=== PATIENT | male | born 1985 | race African-American/Black ===

== ENCOUNTER 2019-07-13 07:04 | Day surgery (SDC) | payer OTHER ==
[2019-07-11 08:58] LABS: BASOPHILS # (AUTO) 0.02 x10^3/uL (0-0.1); BASOPHILS % (AUTO) 0 % (0-1); EOSINOPHILS # (AUTO) 0.06 x10^3/uL (0-0.4); EOSINOPHILS % (AUTO) 1 % (1-7); LYMPHOCYTES # (AUTO) 3.06 x10^3/uL (1-3.4); LYMPHOCYTES % (AUTO) 46 % (22-44); MD NO; MEAN CORPUSCULAR HEMOGLOBIN 26.8 pg (27.5-34.5); MEAN CORPUSCULAR HGB CONC 33.2 g/dL (33.2-36.2); MEAN CORPUSCULAR VOLUME 80.8 fL (81-97); MEAN PLATELET VOLUME 9.1 fL (7.4-10.4); MONOCYTES # (AUTO) 0.58 x10^3/uL (0.2-0.8); MONOCYTES % (AUTO) 9 % (2-9); NEUTROPHILS # (AUTO) 2.89 x10^3/uL (1.8-6.8); NEUTROPHILS % (AUTO) 44 % (42-75); PLATELET COUNT 250 x10^3/uL (130-400); RED BLOOD COUNT 5.43 x10^6/uL (4.38-5.82); RED CELL DISTRIBUTION WIDTH 15.6 % (9.4-14.8)
[2019-07-11 09:12] LABS: ALANINE AMINOTRANSFERASE 41 U/L (12-78); ALBUMIN 4.1 g/dL (3.4-5.0); ANION GAP 4 mmol/L (5-15); CALCIUM 8.8 mg/dL (8.5-10.1); CHLORIDE 107 mmol/L (98-107)
[2019-07-11 09:13] LABS: ALKALINE PHOSPHATASE 64 U/L (45-117); INTERNATIONAL NORMALIZED RATIO 0.97 (0.93-1.1); PROTHROMBIN TIME 10.3 Seconds (9.6-11.5); TOTAL PROTEIN 7.8 g/dL (6.4-8.2)
[~2019-07-13] VITALS: Ht 188 cm; Wt 139.0 kg
[~2019-07-13 07:04] MED LIST: BUPIVACAINE/PF 0.5% ONE; EPINEPHRINE 1 MG/ML, 1ML ONE; No meds per pt.
[2019-07-13] MEDS ORDERED: LACTATED RINGERS 1,000 ML IV SCH (07:21)
[2019-07-13 07:27] VITALS: BP 148/93
[2019-07-13] MEDS ORDERED: ACETAMINOPHEN 500 MG TABLET PO ONE (07:30)
[2019-07-13] MEDS ORDERED: GABAPENTIN 300 MG CAPSULE PO ONE (07:30)
[2019-07-13] MEDS ORDERED: MIDAZOLAM 1 MG/ML, 2ML ONE (08:52)
[2019-07-13] MEDS ORDERED: FENTANYL PF 250 MCG/5ML ONE (08:52)
[2019-07-13] MEDS ORDERED: NEOSPORIN OINT, 15GM ONE (09:09)
[2019-07-13] MEDS ORDERED: EPINEPHRINE 1 MG/ML, 1ML ONE (09:09)
[2019-07-13] MEDS ORDERED: CEFAZOLIN 1,000 MG ONE ×2 (09:25→10:22)
[2019-07-13] MEDS ORDERED: LABETALOL 5MG/ML, 20ML IV PRN (09:30)
[2019-07-13] MEDS ORDERED: FENTANYL PF 100 MCG/2ML IV PRN (09:30)
[2019-07-13] MEDS ORDERED: HALOPERIDOL 5 MG/ML IV PRN (09:30)
[2019-07-13] MEDS ORDERED: PROMETHAZINE 25 MG/ML, 1ML IV PRN (09:30)
[2019-07-13] MEDS ORDERED: HYDROmorphone 2 MG/ML, 1ML IVPush PRN (09:30)
[2019-07-13] MEDS ORDERED: MEPERIDINE/PF 25MG/ML,1ML IVPush PRN (09:30)
[2019-07-13] MEDS ORDERED: OXYcodone 5 MG/5 ML ORAL.SOL UDC PO PRN (09:30)
[2019-07-13] MEDS ORDERED: hydrALAzine 20 MG/ML, 1ML IV PRN (09:30)
[2019-07-13] MEDS ORDERED: EPHEDRINE 50 MG/ML, 1ML ONE (10:02)
[2019-07-13] MEDS ORDERED: SUGAMMADEX 200 MG/2 ML IVPush ONE ×2 (10:18)
[2019-07-13] MEDS ORDERED: ROCURONIUM 10MG/ML,5ML ONE (10:22)
[2019-07-13] MEDS ORDERED: SUCCINYLCHOLINE 20 MG/ML, 10ML ONE (10:22)
[2019-07-13] MEDS ORDERED: ONDANSETRON 2MG/ML, 2ML ONE (10:22)
[2019-07-13] MEDS ORDERED: NEOSTIGMINE 1 MG/ML, 10ML ONE (10:22)
[2019-07-13] MEDS ORDERED: PROPOFOL 10 MG/ML, 20ML ONE (10:22)
[2019-07-13] MEDS ORDERED: GLYCOPYRROLATE 0.2MG/1ML, 5ML ONE (10:22)
[2019-07-13] MEDS ORDERED: DEXAMETHASONE 4 MG/ML, 1ML ONE (10:22)
== END 2019-07-13 13:40 | disposition home or self-care (01) ==
LOC: OUT 07:04
PROVIDERS: ATTEND Surgery
DX: C83.31 Diffuse large B-cell lymphoma, lymph nodes of head, face, and neck (principal); G47.33 Obstructive sleep apnea (adult) (pediatric); E66.01 Morbid (severe) obesity due to excess calories; Z68.30 Body mass index [BMI] 30.0-30.9, adult; Z79.899 Other long term (current) drug therapy; Z80.7 Family history of other malignant neoplasms of lymphoid, hematopoietic and related tissues
CPT/HCPCS: 21014; 36415; 80053; 85025; 85610; 88305; 88341; 88342; 88360; J0171; J0330; J0690; J1100; J2250; J2405; J2704; J3010; J7120; J2710

== ENCOUNTER → 2019-08-02 | Outpatient (CLI) | payer OTHER ==
[~2019-08-02] MED LIST changes: -BUPIVACAINE/PF 0.5% ONE; -EPINEPHRINE 1 MG/ML, 1ML ONE
== END | disposition home or self-care (01) ==
LOC: CVU 08:12
PROVIDERS: ATTEND Internal Medicine Hematology & Oncology
DX: C85.19 Unspecified B-cell lymphoma, extranodal and solid organ sites (principal)
CPT/HCPCS: 93306

== ENCOUNTER 2019-08-08 06:47 | Day surgery (SDC) | payer OTHER ==
[~2019-08-08] VITALS: Ht 188 cm; Wt 151.0 kg
[2019-08-08] MEDS ORDERED: SODIUM CHLORIDE 0.9% 1,000 ML IV SCH (07:25)
[2019-08-08] MEDS ORDERED: CEFAZOLIN PMX 1GM/50ML 50 ML IV ONE (07:30)
[2019-08-08] MEDS ORDERED: LIDOCAINE 1%, 20ML ONE (07:56)
[2019-08-08] MEDS ORDERED: LIDOCAINE 1%, 10ML ONE (07:57)
[2019-08-08] MEDS ORDERED: FENTANYL PF 100 MCG/2ML ONE (08:00)
[2019-08-08] MEDS ORDERED: NALOXONE 1 MG/ML, 2ML ONE (08:01)
[2019-08-08] MEDS ORDERED: MIDAZOLAM 1 MG/ML, 5ML ONE (08:01)
[2019-08-08] MEDS ORDERED: FLUMAZENIL 0.1 MG/1 ML, 5ML ONE (08:01)
[2019-08-08 08:06] VITALS: BP 144/88
[2019-08-08 08:32] LABS: BASOPHILS # (AUTO) 0.02 x10^3/uL (0-0.1); BASOPHILS % (AUTO) 0 % (0-1); EOSINOPHILS # (AUTO) 0.09 x10^3/uL (0-0.4); EOSINOPHILS % (AUTO) 2 % (1-7); LYMPHOCYTES # (AUTO) 2.77 x10^3/uL (1-3.4); LYMPHOCYTES % (AUTO) 44 % (22-44); MD NO; MEAN CORPUSCULAR HEMOGLOBIN 26.7 pg (27.5-34.5); MEAN CORPUSCULAR HGB CONC 32.9 g/dL (33.2-36.2); MEAN CORPUSCULAR VOLUME 81.2 fL (81-97); MEAN PLATELET VOLUME 9.7 fL (7.4-10.4); MONOCYTES % (AUTO) 10 % (2-9); NEUTROPHILS # (AUTO) 2.78 x10^3/uL (1.8-6.8); NEUTROPHILS % (AUTO) 44 % (42-75); PLATELET COUNT 261 x10^3/uL (130-400); RED BLOOD COUNT 5.44 x10^6/uL (4.38-5.82); RED CELL DISTRIBUTION WIDTH 15.1 % (9.4-14.8)
== END 2019-08-08 11:45 | disposition home or self-care (01) ==
LOC: RAD 06:47 → OUT 11:45
PROVIDERS: ATTEND Internal Medicine Hematology & Oncology
DX: C83.39 Diffuse large B-cell lymphoma, extranodal and solid organ sites (principal); D70.4 Cyclic neutropenia; G47.30 Sleep apnea, unspecified; Z80.7 Family history of other malignant neoplasms of lymphoid, hematopoietic and related tissues
CPT/HCPCS: 36415; 36561; 38222; 76937; 77001; 77012; 85025; 85097; 88184; 88185; 88237; 88264; 88280; 88305; 88311; 88313; 99156; 99157; C1788; J0690; J1642; J2250; J3010; J7030; J2310

== ENCOUNTER 2019-09-02 06:17 | Inpatient (IN) | payer OTHER ==
[~2019-09-02] VITALS: Ht 188 cm; Wt 147.5 kg
--- NOTE | 2019-09-02 06:29 | NUR ---
MD MAZARIEGOS'D PT STAYING ON THIS SIDE OF THE ER
[2019-09-02] MEDS ORDERED: CHEMO (06:32)
--- NOTE | 2019-09-02 06:36 | NUR ---
PT TO ED FOR PAIN IN RIGHT NECK R/T IMPLANTED PORT IN RIGHT CHEST FOR NON-HODGKINS LYMPHONA (DX MAR 2019). PT STATES PAIN WITH MOVEMENT AND PALPATION. PORT WAS PLACED APPROX 1 MONTH AGO. INCISION LOOKS APPROXIMATED AND WELL HEALED. LAST CHEMO 3 WEEKS AGO. PT CONNECTED TO MONITORS. VSS. EDPA CLARISA TO BS FOR ASSESSMENT. AWAITING ORDERS.
[2019-09-02] MEDS ORDERED: SODIUM CHLORIDE 0.9% 1,000 ML IV ONE (06:43)
--- NOTE | 2019-09-02 06:54 | NUR ---
report to [facility] Mejia.
[2019-09-02] MEDS ORDERED: ACETAMINOPHEN 500 MG TABLET PO ONE (07:00)
[2019-09-02] MEDS ORDERED: SODIUM CHLORIDE FLUSH 10ML SYR IVF ONE (07:00)
--- NOTE | 2019-09-02 07:11 | NUR ---
REPORT FROM [facility], LABS/BLOOD CULTURES DRAWN. MEDICATED PER ORDERS.
[2019-09-02] MEDS ORDERED: ACETAMINOPHEN 500 MG TABLET ONE (07:17)
[2019-09-02 07:18] LABS: BASOPHILS # (AUTO) 0.04 x10^3/uL (0-0.1); BASOPHILS % (AUTO) 0 % (0-1); EOSINOPHILS # (AUTO) 0.01 x10^3/uL (0-0.4); EOSINOPHILS % (AUTO) 0 % (1-7); LYMPHOCYTES # (AUTO) 1.79 x10^3/uL (1-3.4); LYMPHOCYTES % (AUTO) 18 % (22-44); MD NO; MEAN CORPUSCULAR HGB CONC 33.4 g/dL (33.2-36.2); MEAN CORPUSCULAR VOLUME 80.8 fL (81-97); MONOCYTES % (AUTO) 6 % (2-9); NEUTROPHILS # (AUTO) 7.78 x10^3/uL (1.8-6.8); NEUTROPHILS % (AUTO) 76 % (42-75); PLATELET COUNT 224 x10^3/uL (130-400); RED BLOOD COUNT 5.34 x10^6/uL (4.38-5.82); RED CELL DISTRIBUTION WIDTH 14.8 % (9.4-14.8)
[2019-09-02 07:26] LABS: ALANINE AMINOTRANSFERASE 41 U/L (12-78); ALBUMIN 3.9 g/dL (3.4-5.0); ANION GAP 6 mmol/L (5-15); CALCIUM 9.1 mg/dL (8.5-10.1); CHLORIDE 107 mmol/L (98-107); CREATININE 1.23 mg/dL (0.7-1.3)
[2019-09-02 07:28] LABS: ALKALINE PHOSPHATASE 95 U/L (45-117); BILIRUBIN,TOTAL 0.6 mg/dL (0.2-1.0); TOTAL PROTEIN 8.2 g/dL (6.4-8.2)
[2019-09-02] MEDS ORDERED: OMNIPAQUE 350 MG/ML, 100ML BOTTLE ONE (07:43)
[2019-09-02] MEDS ORDERED: CEFEPIME 2 GM in DEXTROSE 5% 100 ML IV ONE (08:30)
[2019-09-02] MEDS ORDERED: ONDANSETRON 2MG/ML, 2ML IVPush ONE (08:30)
[2019-09-02] MEDS ORDERED: MORPHINE SULFATE 4 MG/ML, 1ML IVPush ONE (08:30)
[2019-09-02] MEDS ORDERED: VANCOMYCIN PER PHARMACY MC ONE (08:30)
[2019-09-02] MEDS ORDERED: ONDANSETRON 2MG/ML, 2ML ONE (08:37)
[2019-09-02] MEDS ORDERED: MORPHINE SULFATE 4 MG/ML, 1ML ONE (08:38)
--- NOTE | 2019-09-02 08:39 | NUR ---
dr jung spoke with dr matthews
--- NOTE | 2019-09-02 08:56 | NUR ---
ABX INFUSING, MEDICATED FOR PIAN. GIVEN WARM BLANKET, PT RESTING. PLAN FOR ADMIT
[2019-09-02] MEDS ORDERED: VANCOMYCIN 2,500 MG in SODIUM CHLORIDE 0.9% 500 ML IV ONE (09:00)
--- NOTE | 2019-09-02 09:47 | NUR ---
MD CORTES AT BEDSIDE
[2019-09-02] MEDS ORDERED: ENOXAPARIN 40 MG/0.4 ML SQ SCH (10:00)
[2019-09-02] MEDS ORDERED: ONDANSETRON 2MG/ML, 2ML IVPush PRN (10:00)
[2019-09-02] MEDS ORDERED: LABETALOL 5MG/ML, 20ML IVPush PRN (10:00)
[2019-09-02] MEDS ORDERED: BISACODYL 10 MG SUPP PR PRN (10:00)
[2019-09-02] MEDS ORDERED: VANCOMYCIN PER PHARMACY MC PRN (10:00)
[2019-09-02] MEDS ORDERED: POLYETHYLENE GLYCOL 17 GM PACKET PO PRN (10:00)
[2019-09-02] MEDS ORDERED: IBUPROFEN 600 MG TABLET PO PRN (10:00)
[2019-09-02] MEDS ORDERED: ENALAPRILAT 1.25 MG/ML, 2ML IVPush PRN (10:00)
--- NOTE | 2019-09-02 11:19 | NUR ---
REPORT TO XIMENA. RTG
[2019-09-02] MEDS ORDERED: PHARMACOKINETIC CONSULTATION MC ONE (12:30)
[2019-09-02] MEDS ORDERED: PHARMACOKINETIC MONITORING MC PRN (12:30)
[2019-09-02 12:50] VITALS: BP 140/90
[2019-09-02] MEDS: CEFTRIAXONE PMX 2GM/50ML 50 ML IV SCH (14:12)
[2019-09-02] MEDS: ACETAMINOPHEN 325 MG TABLET PO PRN ×2 (15:26→21:48)
[2019-09-02] MEDS ORDERED: Enoxaparin 1 mg/kg protocol SQ SCH (15:30)
[2019-09-02] MEDS ORDERED: IBUPROFEN 200 MG TABLET ONE (16:39)
[2019-09-02] MEDS: ENOXAPARIN 150 MG/ML SQ SCH (21:20)
[2019-09-02] MEDS: VANCOMYCIN 2,500 MG in SODIUM CHLORIDE 0.9% 500 ML IV SCH (21:20)
[2019-09-02 22:17] LABS: MICROSCOPIC NOT IND
[2019-09-02 22:18] LABS: CULTURE INDICATED? NO
[2019-09-03] MEDS: ACETAMINOPHEN 325 MG TABLET PO PRN ×2 (05:48→19:41)
[2019-09-03] MEDS: ENOXAPARIN 150 MG/ML SQ SCH ×2 (08:47→21:00)
[2019-09-03] MEDS: SENNA/DOCUSATE TABLET PO SCH (08:56)
[2019-09-03] MEDS: VANCOMYCIN 2,500 MG in SODIUM CHLORIDE 0.9% 500 ML IV SCH ×2 (09:21→21:08)
[2019-09-03 09:41] VITALS: BP 111/78
[2019-09-03 12:48] VITALS: BP 133/74
[2019-09-03] MEDS ORDERED: LIDOCAINE 1%, 20ML ONE (13:09)
[2019-09-03] MEDS ORDERED: NALOXONE 1 MG/ML, 2ML ONE (13:35)
[2019-09-03] MEDS ORDERED: FENTANYL PF 100 MCG/2ML ONE (13:35)
[2019-09-03] MEDS: CEFTRIAXONE PMX 2GM/50ML 50 ML IV SCH (14:54)
[2019-09-03] MEDS: OXYcodone IR 5MG TABLET PO PRN (14:54)
[2019-09-03] MEDS ORDERED: ENOXAPARIN 40 MG/0.4 ML ONE (21:07)
[2019-09-04 07:40] LABS: ANION GAP 5 mmol/L (5-15); CALCIUM 8.7 mg/dL (8.5-10.1); CHLORIDE 105 mmol/L (98-107); CREATININE 1.16 mg/dL (0.7-1.3)
[2019-09-04 07:44] LABS: BASOPHILS # (AUTO) 0.02 x10^3/uL (0-0.1); BASOPHILS % (AUTO) 0 % (0-1); EOSINOPHILS # (AUTO) 0.01 x10^3/uL (0-0.4); EOSINOPHILS % (AUTO) 0 % (1-7); HEMOGRAM NOTE RECHECKED; LYMPHOCYTES # (AUTO) 0.58 x10^3/uL (1-3.4); LYMPHOCYTES % (AUTO) 10 % (22-44); MD NO; MEAN CORPUSCULAR HEMOGLOBIN 26.4 pg (27.5-34.5); MEAN CORPUSCULAR HGB CONC 32.6 g/dL (33.2-36.2); MEAN CORPUSCULAR VOLUME 80.8 fL (81-97); MEAN PLATELET VOLUME 8.9 fL (7.4-10.4); MONOCYTES # (AUTO) 0.61 x10^3/uL (0.2-0.8); MONOCYTES % (AUTO) 10 % (2-9); NEUTROPHILS # (AUTO) 4.78 x10^3/uL (1.8-6.8); NEUTROPHILS % (AUTO) 80 % (42-75); PLATELET COUNT 257 x10^3/uL (130-400); RED BLOOD COUNT 4.91 x10^6/uL (4.38-5.82)
[2019-09-04] MEDS: SENNA/DOCUSATE TABLET PO SCH (08:47)
[2019-09-04] MEDS: OXYcodone IR 5MG TABLET PO PRN ×2 (08:48→16:06)
[2019-09-04] MEDS: ENOXAPARIN 150 MG/ML SQ SCH ×2 (09:09→21:26)
[2019-09-04 12:34] VITALS: BP 133/88
[2019-09-04] MEDS: PIPERACILLIN/TAZO/PMX 4.5GM 100 ML IV SCH ×2 (14:02→23:03)
[2019-09-04 15:25] LABS: HCT (SEDRATE) 39.7 % (39.2-51.8)
[2019-09-04 19:06] VITALS: BP 127/78
[2019-09-04] MEDS: VANCOMYCIN 2,500 MG in SODIUM CHLORIDE 0.9% 500 ML IV SCH (20:20)
[2019-09-05 01:40] VITALS: BP 130/83
[2019-09-05] MEDS: OXYcodone IR 5MG TABLET PO PRN (04:26)
[2019-09-05] MEDS ORDERED: OMNIPAQUE 350 MG/ML, 150 ML BOTTLE ONE (05:15)
[2019-09-05 05:24] LABS: ANION GAP 4 mmol/L (5-15); CALCIUM 8.7 mg/dL (8.5-10.1); CHLORIDE 107 mmol/L (98-107)
[2019-09-05 05:25] LABS: BASOPHILS # (AUTO) 0.03 x10^3/uL (0-0.1); BASOPHILS % (AUTO) 1 % (0-1); EOSINOPHILS # (AUTO) 0.02 x10^3/uL (0-0.4); EOSINOPHILS % (AUTO) 1 % (1-7); LYMPHOCYTES # (AUTO) 1.19 x10^3/uL (1-3.4); LYMPHOCYTES % (AUTO) 23 % (22-44); MD NO; MEAN CORPUSCULAR HEMOGLOBIN 26.7 pg (27.5-34.5); MEAN CORPUSCULAR HGB CONC 33.1 g/dL (33.2-36.2); MEAN CORPUSCULAR VOLUME 80.8 fL (81-97); MEAN PLATELET VOLUME 9.4 fL (7.4-10.4); MONOCYTES # (AUTO) 1.04 x10^3/uL (0.2-0.8); MONOCYTES % (AUTO) 20 % (2-9); NEUTROPHILS # (AUTO) 2.93 x10^3/uL (1.8-6.8); NEUTROPHILS % (AUTO) 56 % (42-75); PLATELET COUNT 252 x10^3/uL (130-400)
[2019-09-05 05:26] LABS: CREATININE 1.05 mg/dL (0.7-1.3)
[2019-09-05] MEDS: PIPERACILLIN/TAZO/PMX 4.5GM 100 ML IV SCH ×4 (06:25→23:59)
[2019-09-05 06:52] VITALS: BP 118/81
[2019-09-05] MEDS: VANCOMYCIN 2,500 MG in SODIUM CHLORIDE 0.9% 500 ML IV SCH (07:57)
[2019-09-05] MEDS: ENOXAPARIN 150 MG/ML SQ SCH ×3 (07:57→21:15)
[2019-09-05] MEDS: SENNA/DOCUSATE TABLET PO SCH ×2 (07:57→08:39)
[2019-09-05 12:51] VITALS: BP 115/82
[2019-09-05] MEDS: ACETAMINOPHEN 325 MG TABLET PO PRN ×2 (15:14→21:23)
[2019-09-05 19:42] VITALS: BP 130/87
[2019-09-06 01:36] VITALS: BP 137/82
[2019-09-06 05:28] LABS: BASOPHILS # (AUTO) 0.02 x10^3/uL (0-0.1); BASOPHILS % (AUTO) 1 % (0-1); EOSINOPHILS # (AUTO) 0.05 x10^3/uL (0-0.4); EOSINOPHILS % (AUTO) 1 % (1-7); LYMPHOCYTES # (AUTO) 1.39 x10^3/uL (1-3.4); LYMPHOCYTES % (AUTO) 27 % (22-44); MD NO; MEAN CORPUSCULAR HEMOGLOBIN 26.5 pg (27.5-34.5); MEAN CORPUSCULAR HGB CONC 32.8 g/dL (33.2-36.2); MEAN CORPUSCULAR VOLUME 80.8 fL (81-97); MEAN PLATELET VOLUME 8.3 fL (7.4-10.4); MONOCYTES # (AUTO) 1.04 x10^3/uL (0.2-0.8); MONOCYTES % (AUTO) 20 % (2-9); NEUTROPHILS # (AUTO) 2.73 x10^3/uL (1.8-6.8); NEUTROPHILS % (AUTO) 52 % (42-75); PLATELET COUNT 319 x10^3/uL (130-400); RED BLOOD COUNT 4.89 x10^6/uL (4.38-5.82); RED CELL DISTRIBUTION WIDTH 14.8 % (9.4-14.8)
[2019-09-06] MEDS: PIPERACILLIN/TAZO/PMX 4.5GM 100 ML IV SCH ×3 (06:11→17:55)
[2019-09-06 06:55] VITALS: BP 146/73
[2019-09-06] MEDS: SENNA/DOCUSATE TABLET PO SCH (09:00)
[2019-09-06] MEDS: APIXABAN 5 MG TABLET PO SCH ×2 (10:09→21:00)
[2019-09-06 15:37] LABS: PROTHROMBIN TIME 10.6 Seconds (9.6-11.5)
[2019-09-06 18:55] VITALS: BP 130/88
[2019-09-07] MEDS: PIPERACILLIN/TAZO/PMX 4.5GM 100 ML IV SCH ×3 (00:12→12:10)
[2019-09-07] MEDS: ACETAMINOPHEN 325 MG TABLET PO PRN (00:27)
[2019-09-07 00:29] VITALS: BP 144/92
[2019-09-07 07:18] VITALS: BP 129/91
[2019-09-07] MEDS: SENNA/DOCUSATE TABLET PO SCH (09:00)
[2019-09-07] MEDS: APIXABAN 5 MG TABLET PO SCH (10:47)
[2019-09-07] MEDS ORDERED: APIX5TAB PO (13:07)
[2019-09-07] MEDS ORDERED: OMNIPAQUE 350 MG/ML, 150 ML BOTTLE ONE (13:15)
[2019-09-07 14:02] VITALS: BP 124/87
== END 2019-09-07 15:35 | disposition home or self-care (01) | DRG 299 ==
LOC: ED 06:46 → EDIP 08:51 → ICU 11:46 → 3E 09-03 08:55 → 3N 09-03 12:30
PROVIDERS: ADMIT Internal Medicine; ATTEND Hospitalist
PROC: 05PYX3Z Removal of Infusion Device from Upper Vein, External Approach (ICD-10-PCS; principal; 2019-09-03)
PROC: 02HV33Z Insertion of Infusion Device into Superior Vena Cava, Percutaneous Approach (ICD-10-PCS; 2019-09-06)
PROC: B548ZZA Ultrasonography of Superior Vena Cava, Guidance (ICD-10-PCS; 2019-09-06)
PROC: 5A09357 Assistance with Respiratory Ventilation, Less than 24 Consecutive Hours, Continuous Positive Airway Pressure (ICD-10-PCS; 2019-09-06)
DX: I80.8 Phlebitis and thrombophlebitis of other sites (principal); K75.0 Abscess of liver; C83.30 Diffuse large B-cell lymphoma, unspecified site; J39.0 Retropharyngeal and parapharyngeal abscess; Z68.41 Body mass index [BMI] 40.0-44.9, adult; I76 Septic arterial embolism; I82.C11 Acute embolism and thrombosis of right internal jugular vein; D50.9 Iron deficiency anemia, unspecified; G47.33 Obstructive sleep apnea (adult) (pediatric); I10 Essential (primary) hypertension; E66.01 Morbid (severe) obesity due to excess calories; Z20.818 Contact with and (suspected) exposure to other bacterial communicable diseases; Z80.7 Family history of other malignant neoplasms of lymphoid, hematopoietic and related tissues; Z86.718 Personal history of other venous thrombosis and embolism; Z92.21 Personal history of antineoplastic chemotherapy
CPT/HCPCS: 36415; 77001; 84145; 96361; 96365; 96375; 99285; J3490; 36573; 36590; 70491; 71045; 71260; 74177; 80048; 80053; 80202; 81003; 82728; 83540; 83550; 83605; 85025; 85610; 85651; 86140; 86694; 86695; 86696; 87040; 87070; 87081; 93005; 94660; G0378; J0696; J1650; J2405; J2543; J3010; J3370; Q9967; C1751; J2270; J2310; J7030; J7040

== ENCOUNTER 2019-10-30 07:53 | Outpatient (CLI) | payer OTHER ==
[~2019-10-30 07:53] MED LIST changes: +APIX5TAB PO; +CHEMO
== END 2019-10-30 23:59 | disposition home or self-care (01) ==
LOC: PETCFH 07:53
PROVIDERS: ATTEND Internal Medicine Hematology & Oncology
DX: C83.39 Diffuse large B-cell lymphoma, extranodal and solid organ sites (principal)
CPT/HCPCS: 78815; A9552